=== PATIENT | male | born 1985 | race Caucasian/White ===

== ENCOUNTER → 2024-04-14 08:50 | Outpatient (CLI) | payer OTHER, SELFPAY ==
--- NOTE | ~2024-04-14 | XR_ITS ---
[id number] Ordering provider: Antoinette Lira, PA History: . NUMBNESS AND TINGLING TO RIGHT HAND R20.0,R20.2 NO INJURY . Comparison: None. FINDINGS: VERTEBRAL BODIES: Normal height and alignment. No visible fracture or subluxation. The dens is intact . DISK SPACES: Well maintained. PARASPINOUS SOFT TISSUES: No prevertebral soft tissue swelling. IMPRESSION: No acute osseous abnormality cervical spine. Reviewed, dictated and finalized at location A.
== END ==
PROVIDERS: PCP Physician Assistant; Visit Provider Physician Assistant
DX: R20.2 Paresthesia of skin (principal); R20.0 Anesthesia of skin
CPT/HCPCS: 72040

== ENCOUNTER 2025-07-06 11:28 | Emergency (ER) | payer OTHER, SELFPAY ==
--- NOTE | 2025-07-06 11:30 | ED.LOWEXIN ---
HPI - Extremity Injury (Lower) General Chief Complaint: Extremity Problem,Nontraumatic Stated Complaint: Left Knee Pain Time Seen by Provider: 07/06/25 11:30 Source: patient Mode of arrival: ambulatory Limitations: no limitations History of Present Illness HPI Narrative: Patient is a 39-year-old male who presents with left knee pain after hitting it with cooler on . Patient states to hyperextend is knee backwards and had pain for a short while after. Patient states over the weekend he felt fine was able to do all normal daily activities. Patient works at the [employer] and needs work note to return. Patient had used ice, elevated and used Mainor wrap. Related Data Home Medications ?Medication ?Instructions ?Recorded ?Confirmed ?Last Taken ?Type clomipramine 75 mg capsule mg 07/06/25 Unknown History ergocalciferol (vitamin D2) 1,250 07/06/25 Unknown History mcg (50,000 unit) capsule losartan 50 mg tablet mg 07/06/25 Unknown History venlafaxine 37.5 mg mg PO 07/06/25 Unknown History capsule,extended release 24 hr Allergies Allergy/AdvReac Type Severity Reaction Status Date / Time Penicillins Allergy Mild Rash Verified 07/06/25 11:45 chlorhexidine Allergy rash Verified 07/06/25 11:45 Review of Systems Review of Systems: All systems reviewed & are unremarkable except as noted in HPI and below Constitutional: Constitutional: Denies body ache(s), Denies chills, Denies fatigue, Denies fever(s), Denies headache(s), Denies malaise and Denies weakness Eyes: Eyes: Denies blurry vision, Denies irritation and Denies loss of vision ENT: Denies otalgia, Denies headache(s), Denies nasal discharge, Denies sinus pain and Denies sore throat Cardiovascular: Cardiovascular: Denies chest pain, Denies irregular heart rhythm and Denies dyspnea Respiratory: Respiratory: Denies dyspnea Gastrointestinal: Gastrointestinal: Denies abdominal pain, Denies melena, Denies hematochezia, Denies diarrhea, Denies nausea and Denies vomiting Musculoskeletal: Musculoskeletal: Denies back pain, Denies myalgias and Reports arthralgias Integumentary/Breasts: Skin/Breast: Denies pruritus and Denies rash Neurologic: Denies headache(s), Denies loss of vision and Denies weakness Psychiatric: Psychiatric: Reports no additional psychiatric complaints Endocrine: Endocrine: Denies fatigue PMFSH Comments At time of signature, agree with nursing past medical, surgical, social and family history. There is no relevant family history pertinent to the presenting complaint. Exam Const: General: cooperative, healthy appearing, comfortable, no acute distress and well nourished Nutritional Appearance: well nourished Orientation/consciousness: patient oriented x3 Limitations: no limitations HENMT: Head: normal to inspection, normocephalic and atraumatic Ears: hearing grossly normal bilaterally and external ears normal Face/Nose/Sinus: Normal external nose present, normal facial exam and face symmetric Face and sinus: normal facial exam and face symmetric Mouth: Yes lip normal Eyes: General: appearance normal, both eyes and all related structures Alignment and Position: alignment normal and position normal Periorbital: periorbital findings normal Eyelids: eyelids normal Pupils: Equal, round and reactive pupils present EOM: EOMs intact bilaterally Neck: Neck: normal visual inspection, full ROM and supple Chest: Chest palpation & inspection: normal inspection of the chest Resp: Effort & Inspection: normal respiratory effort and able to speak in complete sentences Auscultation: clear to auscultation bilaterally Cardio: Rate: regular rate Rhythm: regular rhythm Heart sounds: S1 normal heart sound present and S2 normal heart sound present GI: Inspection: normal to inspection Skin: General skin exam: normal color and no rashes or lesions noted Neuro: General: patient oriented x3 and moves all extremities Cranial nerves: Yes Equal, round and reactive pupils present Speech: normal speech Gait exam (Neuro): Normal gait present Extrem: General: normal to inspection, full ROM and no edema Left lower extremity: hip/thigh Details: normal to inspection and normal ROM; no tenderness and no swelling, knee Details: normal to inspection, normal ROM and knee ligament exam normal Details: anterior drawer test normal, posterior drawer test normal, valgus stress test normal and varus stress test normal; no tenderness, no swelling and no ecchymosis and ankle Details: normal to inspection and normal ROM; no tenderness and no swelling Psych: Appearance: grossly normal and well kempt Mental Status: mental status grossly normal Speech and movement: Normal speech and movement present Affect: normal affect Attitude: cooperative Thought process: Normal thought process present Course Course Emergency Course: Patient is aware of diagnosis, understands and agrees to treatment plan. Anticipatory guidance given. Patient agrees to follow-up as directed and is aware of reasons to seek care at the emergency department. Portions of this record may have been created with voice recognition software Level of Care: Express Care Visit Vital Signs Vital signs: Vital Signs Temperature 37.2 C 07/06/25 11:40 Pulse Rate 78 07/06/25 11:40 Respiratory Rate 20 07/06/25 11:40 Blood Pressure 147/92 H 07/06/25 11:40 Pulse Oximetry 100 07/06/25 11:40 Oxygen Delivery Room Air 07/06/25 11:40 Temperature 37.2 C 07/06/25 11:40 Pulse Rate 78 07/06/25 11:40 Respiratory Rate 20 07/06/25 11:40 Blood Pressure 147/92 H 07/06/25 11:40 Pulse Oximetry 100 07/06/25 11:40 Oxygen Delivery Room Air 07/06/25 11:40 Reviewed MDM - Extremity Injury (Lower) MDM Narrative Medical decision making narrative: Patient is able to bear weight and ambulate without pain. No surface of trauma or obvious effusion. No overlying erythema or warmth. The L knee is without obvious asymmetry or deformity when comparing to the L. Patient is able to do a deep knee bend with symmetry., Fully extended knee, internal and external rotation. Nontender to palpate of the patella, no effusion. Nontender over the infrapatellar tendon.. Nontender over the medial or lateral joint line, or medial or lateral tibial plateaus. Nontender over the proximal fibular head. Nontender, fullness, or mass of the popliteal fossa. NO quadriceps tenderness. No laxity of the ACL, PCL, MCL, LCL. Distal motor and neurovascular status intact. Pt well hydrated appearing, in no respiratory distress, hemodynamically stable. Recommend supportive care. The patient is stable at time of discharge the clinical impression was discussed and the patient was given the opportunity to ask questions, which were addressed as completely as possible given the information available at present. Anticipatory guidance and return to care precautions were discussed and the importance of primary care follow-up was stressed and encouraged. The patient voiced understanding of the plan, indications to return, and the need for follow-up. Exam findings show no acute concerns or changes Patient is appropriate for outpatient treatment and follow-up. Differential Diagnosis Differential diagnosis: Likely acute internal derangement of knee Discharge Plan Discharge Clinical Impression: Knee pain, left Qualifiers: Chronicity: acute Qualified Code(s): M25.562 - Pain in left knee Patient Disposition: Home Condition: Stable Instructions: Knee Pain (ED) Additional Instructions: Minimize activities that aggravate the condition The RICE protocol. Follow the RICE protocol as soon as possible after your injury: Rest your knee by not walking on it. Ice should be immediately applied to keep the swelling down. It can be used for 20 to 30 minutes, three or four times daily. Do not apply ice directly to your skin. Compression dressings, bandages or mainor-wraps will immobilize and support your injured knee. Elevate your knee above the level of your heart as often as possible during the first 48 hours. Medication: Nonsteroidal anti-inflammatory drugs (NSAIDs) such as ibuprofen and naproxen can help control pain and swelling. Because they improve function by both reducing swelling and controlling pain, they are a better option for mild sprains than narcotic pain medicines. Please schedule a follow-up visit with your personal physician for further evaluation and treatment within 1week OR If your symptoms persist, change or worsen significantly before you can contact your personal physician then please, without delay, go to the emergency department for further evaluation. Patient Language: Latvian Prescriptions: No Action losartan 50 mg tablet venlafaxine 37.5 mg capsule,extended release 24hr PO clomipramine 75 mg capsule ergocalciferol (vitamin D2) 1,250 mcg (50,000 unit) capsule Follow-up/Referrals: Soraya,TERRENCE Curry [Primary Care Provider, Unknown] - 3 Days Stand Alone Forms: Work/School Release IP Time of Disposition: 11:50
[2025-07-06 11:40] VITALS: BP 147/92; PULSE 78; RESP 20; TEMP 37.2; O2SAT 100
== END 2025-07-06 11:55 | disposition home or self-care (01) ==
PROVIDERS: Emergency Provider Nurse Practitioner Family; PCP Physician Assistant
DX: M25.562 Pain in left knee (principal); I10 Essential (primary) hypertension; F41.9 Anxiety disorder, unspecified; F32.A Depression, unspecified
CPT/HCPCS: 99202; G0463

== ENCOUNTER → 2025-08-31 12:05 | Outpatient (CLI) | payer OTHER, SELFPAY ==
--- NOTE | ~2025-08-31 | XR_ITS ---
EXAMINATION: XR shoulder RT min 2V, 08/31/2025 12:15 [employer] TECHNICIAN HISTORY: PAIN COMPARISON: No comparisons available. Findings: No acute fracture or malalignment. No significant degenerative changes. Soft tissues unremarkable. Impression: No acute fracture or malalignment. Reviewed, dictated and finalized at location P. [employer] TECHNICIAN Impression: No acute fracture or malalignment.
== END ==
PROVIDERS: PCP Physician Assistant; Visit Provider Physician Assistant
DX: M25.511 Pain in right shoulder (principal)
CPT/HCPCS: 73030